=== PATIENT | female | born 1965 | race African-American/Black ===

== ENCOUNTER 2018-04-29 21:33 | Emergency (ER) | payer MEDICARE, OTHER ==
[~2018-04-29] VITALS: Ht 144.8 cm; Wt 102.1 kg
--- NOTE | 2018-04-29 22:23 | PHYS DOC ---
Adult General Chief Complaint Chief Complaint: ABDOMINAL PAIN HPI HPI Patient is a 52 year old female who presents with dizziness and weakness. Patient reports she was sitting at the table when she had the urge to have a bowel movement. When she stood up she felt dizzy and a little weak, she lowered herself to the floor and crawl to the bedroom to the phone. She reports she continues to feel mildly dizzy and a little nauseated. She reports her abdomen no longer hurts. Patient with a history of CVA with left-sided deficit. She reports she has been under increased stress. Review of Systems Review of Systems Constitutional: Denies fever or chills [] Respiratory: Denies cough or shortness of breath [] Cardiovascular: No chest pain or palpitations GI: Denies abdominal pain, nausea, vomiting Musculoskeletal: Denies back pain or joint pain [] Integument: Denies rash or skin lesions [] Neurologic: Denies headache, focal weakness or sensory changes. Reports generalized weakness and dizziness[] All other systems were reviewed and found to be within normal limits, except as documented in this note. Allergies Allergies Allergies Coded Allergies Type Severity Reaction Last Updated Verified codeine Allergy Unknown 04/29/18 Yes Physical Exam Physical Exam Constitutional: Well developed, well nourished, no acute distress, non-toxic appearance. [] HENT: Normocephalic, atraumatic Eyes: PERRLA, EOMI, conjunctiva normal, no discharge. [] Neck: Normal range of motion, no tenderness, supple, no stridor. [] Cardiovascular:Heart rate regular rhythm, no murmur [] Lungs & Thorax: Bilateral breath sounds clear to auscultation [] Abdomen: Bowel sounds normal, soft, no tenderness, no masses, no pulsatile masses. [] Skin: Warm, dry, no erythema, no rash. [] Neurologic: Alert and oriented X 3, normal motor function for patient, no new sensory deficit noted, no new focal deficits noted. [] Psychologic: Affect normal, judgement normal, mood normal. [] Current Patient Data Vital Signs Vital Signs Date Time Temp Pulse Resp B/P (MAP) Pulse Ox O2 Delivery O2 Flow Rate FiO2 04/29/18 23:05 98.2 74 18 136/76 (96) 98 Room Air 98.2 Lab Values Laboratory Tests Test 04/29/18 22:30 04/30/18 00:05 White Blood Count 17.5 x10^3/uL (4.0-11.0) H Red Blood Count 4.31 x10^6/uL (3.50-5.40) Hemoglobin 13.4 g/dL (12.0-15.5) Hematocrit 40.1 % (36.0-47.0) Mean Corpuscular Volume 93 fL (79-100) Mean Corpuscular Hemoglobin 31 pg (25-35) Mean Corpuscular Hemoglobin Concent 33 g/dL (31-37) Red Cell Distribution Width 14.8 % (11.5-14.5) H Platelet Count 382 x10^3/uL (140-400) Neutrophils (%) (Auto) 84 % (31-73) H Lymphocytes (%) (Auto) 10 % (24-48) L Monocytes (%) (Auto) 5 % (0-9) Eosinophils (%) (Auto) 0 % (0-3) Basophils (%) (Auto) 1 % (0-3) Neutrophils # (Auto) 14.7 x10^3uL (1.8-7.7) H Lymphocytes # (Auto) 1.7 x10^3/uL (1.0-4.8) Monocytes # (Auto) 0.9 x10^3/uL (0.0-1.1) Eosinophils # (Auto) 0.1 x10^3/uL (0.0-0.7) Basophils # (Auto) 0.1 x10^3/uL (0.0-0.2) Segmented Neutrophils % 83 % (35-66) H Band Neutrophils % 3 % (0-9) Lymphocytes % 11 % (24-48) L Monocytes % 3 % (0-10) Platelet Estimate Adequate (ADEQUATE) Sodium Level 137 mmol/L (136-145) Potassium Level 3.9 mmol/L (3.5-5.1) Chloride Level 102 mmol/L (98-107) Carbon Dioxide Level 29 mmol/L (21-32) Anion Gap 6 (6-14) Blood Urea Nitrogen 8 mg/dL (7-20) Creatinine 1.1 mg/dL (0.6-1.0) H Estimated GFR (Cockcroft-Gault) 63.4 BUN/Creatinine Ratio 7 (6-20) Glucose Level 101 mg/dL (70-99) H Calcium Level 9.4 mg/dL (8.5-10.1) Total Bilirubin 0.5 mg/dL (0.2-1.0) Aspartate Amino Transferase (AST) 28 U/L (15-37) Alanine Aminotransferase (ALT) 31 U/L (14-59) Alkaline Phosphatase 70 U/L (46-116) Troponin I Quantitative < 0.017 ng/mL (0.000-0.055) Total Protein 7.6 g/dL (6.4-8.2) Albumin 3.5 g/dL (3.4-5.0) Albumin/Globulin Ratio 0.9 (1.0-1.7) L Urine Collection Type Unknown Urine Color Yellow Urine Clarity Clear Urine pH 5.5 Urine Specific Fords 1.015 Urine Protein 30 mg/dL (NEG-TRACE) Urine Glucose (UA) Negative mg/dL (NEG) Urine Ketones (Stick) Negative mg/dL (NEG) Urine Blood Trace (NEG) Urine Nitrite Negative (NEG) Urine Bilirubin Negative (NEG) Urine Urobilinogen Dipstick 1.0 mg/dL (0.2 mg/dL) Urine Leukocyte Esterase Negative (NEG) Urine RBC 1-2 /HPF (0-2) Urine WBC 1-4 /HPF (0-4) Urine Squamous Epithelial Cells Many /LPF Urine Bacteria Moderate /HPF (0-FEW) Urine Mucus Slight /LPF Laboratory Tests 04/29/18 22:30 Laboratory Tests 04/29/18 22:30 EKG EKG [] Radiology/Procedures Radiology/Procedures PATIENT: FLAKITA NYE BACCOUNT: [id number]#: [id number] : 1965 LOCATION: ER AGE: 52 SEX: F EXAM STATUS: REG ER ORD. PHYSICIAN: BALDOMERO COLINDRES APRN REASON: dizziness, generalized weakness PROCEDURE: CT HEAD WO CONTRAST CT Head W/O Contrast: History: WEAKNESS, DIZZINESS Comparison: none Axial images were obtained without contrast. There is encephalomalacia with ex vacuo dilation of the right lateral ventricle secondary to an old large right MCA territory infarct. The remaining sandoval and white matter appears normal and symmetrical for the patients age. There is no mass effect, extraaxial fluid collections or hydrocephalus. There is no gross bleed. There is no focal loss of sandoval-white matter distinction to suggest acute ischemia, i.e. stroke. Impression: Old large right-sided infarct. No acute findings.[] Course & Med Decision Making Course & Med Decision Making Pertinent Labs and Imaging studies reviewed. (See chart for details) Care is transitioned to Carolyn Canas APRN, awaiting labs. The patient states that all of her symptoms have resolved. Her lab results revealed an isolated elevated white count with no source for infection. The patient states that she has no dysuria, cough, fever or wounds. She states that she feels she can return to her place of residence. Dragon Disclaimer Dragon Disclaimer This electronic medical record was generated, in whole or in part, using a voice recognition dictation system. Departure Departure Impression: Primary Impression: Dizziness Disposition: 01 HOME, SELF-CARE Condition: STABLE Referrals: UNKNOWN PCP NAME (PCP) Patient Instructions: Dizziness Additional Instructions: Follow-up with your primary care provider within 3 days for recheck. If worsening return to the emergency department immediately. BALDOMERO COLINDRES VEGETABLE TESTER Apr 29, 2018 22:23 CAROLYN CANAS VEGETABLE TESTER Apr 30, 2018 00:42
--- NOTE | 2018-04-29 22:33 | RAD ---
CT Head W/O Contrast: History: WEAKNESS, DIZZINESS Comparison: none Axial images were obtained without contrast. There is encephalomalacia with ex vacuo dilation of the right lateral ventricle secondary to an old large right MCA territory infarct. The remaining sandoval and white matter appears normal and symmetrical for the patients age. There is no mass effect, extraaxial fluid collections or hydrocephalus. There is no gross bleed. There is no focal loss of sandoval-white matter distinction to suggest acute ischemia, i.e. stroke. Impression: Old large right-sided infarct. No acute findings. PQRS Compliance Statement: One or more of the following individualized dose reduction techniques were utilized for this examination: 1. Automated exposure control 2. Adjustment of the mA and/or kV according to patient size 3. Use of iterative reconstruction technique Electronically signed by: Kyle Penaloza III, MD (04/29/2018 10:29 PM) [facility]
[2018-04-29 22:44] LABS: BASO # 0.1 x10^3/uL (0.0-0.2); BASO % 1 % (0-3); EOS # 0.1 x10^3/uL (0.0-0.7); EOS % 0 % (0-3); HEMATOCRIT 40.1 % (36.0-47.0); HEMOGLOBIN 13.4 g/dL (12.0-15.5); LYMPH # 1.7 x10^3/uL (1.0-4.8); LYMPH % 10 % (24-48); MEAN CORPUSCULAR HEMOGLOBIN 31 pg (25-35); MEAN CORPUSCULAR HGB CONC 33 g/dL (31-37); MEAN CORPUSCULAR VOLUME 93 fL (79-100); MONO # 0.9 x10^3/uL (0.0-1.1); MONO % 5 % (0-9); NEUT # 14.7 x10^3uL (1.8-7.7); NEUT % 84 % (31-73); PLATELET COUNT 382 x10^3/uL (140-400); RED BLOOD COUNT 4.31 x10^6/uL (3.50-5.40); RED CELL DISTRIBUTION WIDTH 14.8 % (11.5-14.5); WHITE BLOOD COUNT 17.5 x10^3/uL (4.0-11.0)
[2018-04-29 22:55] LABS: CALCIUM 9.4 mg/dL (8.5-10.1); CREATININE 1.1 mg/dL (0.6-1.0); GFR 63.4; POTASSIUM 3.9 mmol/L (3.5-5.1)
[2018-04-29 23:01] LABS: ALBUMIN 3.5 g/dL (3.4-5.0); ALBUMIN/GLOBULIN RATIO 0.9 (1.0-1.7); TOTAL BILIRUBIN 0.5 mg/dL (0.2-1.0); TOTAL PROTEIN 7.6 g/dL (6.4-8.2)
[2018-04-29 23:07] LABS: % BANDS 3 % (0-9); % LYMPHS 11 % (24-48); % MONOS 3 % (0-10); % SEGS 83 % (35-66); PLT ESTIMATE ADEQUATE (ADEQUATE)
[2018-04-30 00:18] LABS: BILIRUBIN,URINE NEGATIVE (NEG); CLARITY,URINE CLEAR; COLOR,URINE YELLOW; NITRITE,URINE NEGATIVE (NEG); PH,URINE 5.5; PROTEIN,URINE 30 mg/dL (NEG-TRACE)
[2018-04-30 00:25] LABS: BACTERIA,URINE MODERATE /HPF (0-FEW); SQUAMOUS EPITHELIAL CELL,UR MANY /LPF
[2018-04-30 01:25] VITALS: BP 140/70
--- NOTE | 2018-04-30 06:12 | EKG ---
[facility] [address] [place] [address] Test Date: 2018-04-29 Test Time: 22:41:32 Pat Name: FLAKITA NYE Department: Room: Gender: F Clinical Science Consultant: NADER : 1965 Requested By: BALDOMERO COLINDRES Order Number: [id number] Reading MD: Rasta Gutierrez MD Measurements Intervals Hope Rate: 66 P: 38 SD: 168 QRS: 25 QRSD: 78 T: 10 QT: 398 QTc: 419 Interpretive Statements SINUS RHYTHM NON-SPECIFIC ST/T CHANGES Electronically Signed On 05-02-2018 15:17:31 CDT by Rasta Gutierrez MD
--- NOTE | 2018-04-30 08:35 | RAD ---
EXAM: Portable AP upright chest radiograph DATE: 04/29/2018 10:16 PM INDICATION: dizziness, weakness, hx of stroke COMPARISON: No Prior FINDINGS: The heart is not enlarged. Mediastinal and hilar contours are normal. Apparent hazy opacities right lung base likely from soft tissue radiographic attenuation. No pleural effusion or pneumothorax. Apparent mild inferior subluxation of the left glenohumeral joint. IMPRESSION: 1. No radiographic evidence for acute cardiopulmonary process. 2. Inferior subluxation of the left humeral joint is partially profiled. Consider dedicated shoulder radiographs if clinically indicated. Electronically signed by: Yohan Egan MD (04/30/2018 8:31 AM) [facility]
== END 2018-04-30 01:27 | disposition home or self-care (01) ==
LOC: ER 21:33
DX: R42 Dizziness and giddiness (principal); R53.1 Weakness; R11.0 Nausea
CPT/HCPCS: 36415; 70450; 71045; 80053; 81001; 84484; 85007; 85025; 87086; 93005; 99285-25

== ENCOUNTER 2018-04-30 01:53 | Emergency (ER) | payer MEDICARE, OTHER ==
[~2018-04-30] VITALS: Ht 144.8 cm; Wt 106.6 kg
[2018-04-30] MEDS ORDERED: levETIRAcetam 1,000 MG in IV DEXTROSE 5% 100ML 100 ML IV ONE (03:00)
--- NOTE | 2018-04-30 03:08 | PHYS DOC ---
Past Medical History Past Medical History: Seizure, Stroke Past Surgical History: No Surgical History Alcohol Use: None Drug Use: None Adult General Chief Complaint Chief Complaint: SEIZURE HPI HPI Patient is a 52 year old female who presents with seizure activity. Patient has evaluated earlier in the evening in this emergency room for dizziness. At time, her symptoms resolved. Her workup was essentially negative aside from an isolated white blood cell count. Her review of systems was negative for any suspicion of infectious process. The patient was provided transfer home. While she was in the waiting room waiting on her right to arrive, she did have a witnessed tonic-clonic seizure. The patient was in the emergency department and did miss her evening dose of seizure medication. She has a known history of seizures. The patient is mildly post ictal during the interview and, exactly recall what medication she takes but when prompted, she does state she believes it to be Keppra. She is normally followed at [facility] neurology. During her workup earlier in the evening, she underwent CT scan of the head which was revealing only for old known pathology and no acute or new findings. The seizure activity was witnessed. The patient was sitting in a wheelchair when she began to have a seizure. She did not fall out of the chair. She did not sustain any injury. Review of Systems Review of Systems Constitutional: Denies fever Eyes: Denies change in visual acuity HENT: Denies nasal congestion Respiratory: Denies cough or shortness of breath Cardiovascular: No additional information not addressed in HPI GI: Denies abdominal pain, nausea : Denies dysuria Musculoskeletal: Denies back pain Integument: Denies rash Neurologic: Denies headache Endocrine: Denies polyuria All other systems were reviewed and found to be within normal limits, except as documented in this note. Current Medications Current Medications Current Medications Medications (Trade) Dose Ordered Sig/Jessie Start Time Stop Time Status Last Admin Dose Admin Levetiracetam 1000 mg/Dextrose 110 ml @ 440 mls/hr 1X ONCE 04/30/18 03:00 04/30/18 03:14 DC 04/30/18 03:10 440 MLS/HR Lorazepam (Ativan) 0.5 mg 1X ONCE 04/30/18 02:15 04/30/18 02:56 DC 04/30/18 02:50 0.5 MG Allergies Allergies Allergies Coded Allergies Type Severity Reaction Last Updated Verified codeine Allergy Unknown 04/29/18 Yes Physical Exam Physical Exam Constitutional: Well developed, well nourished, no acute distress HENT: Normocephalic, atraumatic, bilateral external ears normal, oropharynx moist, no trauma Eyes: PERRLA, EOMI, conjunctiva normal Neck: Normal range of motion Cardiovascular:Heart rate regular rhythm, no murmur Lungs & Thorax: Bilateral breath sounds clear to auscultation Abdomen: Bowel sounds normal, soft Skin: Warm, dry, no erythema, no rash Extremities: No injury Neurologic: Alert and oriented X 3 Psychologic: Affect normal Current Patient Data Vital Signs Vital Signs Date Time Temp Pulse Resp B/P (MAP) Pulse Ox O2 Delivery O2 Flow Rate FiO2 04/30/18 02:08 98.3 97 20 156/72 (100) 92 Room Air 98.3 Lab Values Laboratory Tests Test 04/30/18 02:04 Glucose (Fingerstick) 136 mg/dL (70-99) H EKG EKG [] Radiology/Procedures Radiology/Procedures [] Course & Med Decision Making Course & Med Decision Making Pertinent Labs and Imaging studies reviewed. (See chart for details) Patient is seen on arrival to her room. Mildly post-ictal and somewhat confused. Orders placed for 0.5 mg lorazepam and 1 gm keppra. Plan is to observe the patient for several hours and anticipate discharge home. 05:30: Patient is observed in the ER for 3 hours. There is no additional seizure activity. She was given a Keppra load as well as 0.5 mg of Ativan. Patient is discharged from the ER. She is encouraged to continue her normal medical regimen and follow up with her primary care doctor or her neurologist. Also to return to the ER for any new or worsening symptoms. The patient is again ordered to have transportation home. Dragon Disclaimer Dragon Disclaimer This electronic medical record was generated, in whole or in part, using a voice recognition dictation system. Departure Departure Referrals: ROYA DORANTES (PCP) ALEXEY HERNDON DO Apr 30, 2018 03:08
[2018-04-30 06:11] VITALS: BP 133/73
== END 2018-04-30 06:25 | disposition home or self-care (01) ==
LOC: ER 01:53
DX: G40.409 Other generalized epilepsy and epileptic syndromes, not intractable, without status epilepticus (principal); Z86.73 Personal history of transient ischemic attack (TIA), and cerebral infarction without residual deficits; Z88.5 Allergy status to narcotic agent
CPT/HCPCS: 82962; 96365; 96375; 99284; J1953; J2060